=== PATIENT | male | born 1985 | race Caucasian/White ===

== ENCOUNTER → 2017-08-02 | Outpatient (REF) ==
--- NOTE | 2017-08-02 10:27 | RADIOLOGY IMAGING REPORT ---
FACILITY: [facility] PATIENT NAME: Attila Bhandari : 1985 MR: [id number] V: [id number] EXAM DATE: ORDERING PHYSICIAN: DWIGHT ALEJANDRO TECHNOLOGIST: Location: [facility] [place] Patient: Attila Bhandari : 1985 Visit/Account:[id number] Date of Sevice: 08/02/2017 Technique: CHEST PA AND LAT HISTORY: Physical, current smoker COMPARISON: None Findings: The lungs are clear. No pleural effusion or pneumothorax. The cardiomediastinal silhouett e is normal. Impression: 1. No acute cardiopulmonary process. Report Dictated By: Sea Calix DO at 08/02/2017 10:22 AM Report E-Signed By: Sea Calix DO at 08/02/2017 10:23 AM WSN:[id number]
== END ==
LOC: RAD 09:51
PROVIDERS: ATTEND Physician Assistant
DX: Z02.79 Encounter for issue of other medical certificate (principal)
CPT/HCPCS: 71046